=== PATIENT | male | born 1955 | race Caucasian/White ===

== ENCOUNTER 2016-09-01 04:21 | Emergency (ER) | payer OTHER ==
[~2016-09-01] VITALS: Ht 180.3 cm; Wt 104.3 kg
[~2016-09-01 04:21] MED LIST: FLUVOXAMINE MAL50 MG PO; GABAPENTIN300 M2 PO; LISINOPRIL10 M1 PO; LISINOPRIL20 M1 PO; LITHIUM CARBON300 M4 PO; MIRTAZAPINE15 M2 PO; MULTI-DAY VITA1 EACH PO; TRAZODONE HCL100 M1 PO
--- NOTE | 2016-09-01 04:23 | ED AMS/SEIZURE/WEAK/DIZZY ---
History of Present Illness General Chief Complaint: ETOH/Drug Related Complaint Stated Complaint: BIBA, +ETOH Source: patient, EMS Exam Limitations: intoxication Vital Signs & Intake/Output Vital Signs & Intake/Output Vital Signs Date Time Temp Pulse Resp B/P Pulse O2 O2 Flow FiO2 Ox Delivery Rate 09/02 1106 98.3 89 18 135/74 100 Room Air 09/02 0955 98.2 90 20 141/69 97 Room Air 09/02 0803 98.2 76 16 164/88 09/02 0803 98.2 76 16 164/88 95 Room Air 09/02 0644 97.8 75 20 155/85 97 Room Air 09/02 0529 98.1 84 20 140/98 09/02 0505 98.1 84 20 140/98 94 Room Air 09/02 0310 98.3 80 20 154/79 09/02 0258 98.3 80 20 154/79 94 Room Air 09/02 0016 96.3 83 18 136/78 94 Room Air 09/01 2300 96.3 83 18 136/78 09/01 2020 98.0 94 20 124/73 93 Room Air 09/01 1641 98.8 105 20 162/94 94 Room Air 09/01 1421 97.9 103 18 146/80 03 1421 97.9 103 20 146/80 95 ED Intake and Output 09/02 0000 09/01 1200 Intake Total 240 Output Total Balance 240 Intake, Oral 240 Patient 230 lb Weight Allergies Coded Allergies: No Known Allergies (01/27/16) Reconcile Medications Gabapentin 300 MG CAPSULE 300 MG PO QAM ANXIETY,PAIN,RESTLESSNESS (Reported) Gabapentin 300 MG CAPSULE 4 CAP PO QPM MENTAL HEALTH/PAIN (Reported) Lisinopril 20 MG TABLET 1 TAB PO DAILY BP (Reported) [place] Carbonate 300 MG CAPSULE 2 CAP PO BID MENTAL HEALTH (Reported) Mirtazapine 15 MG TABLET 1 TAB PO QPM SLEEP/MENTAL HEALTH (Reported) Triage Nurses Notes Reviewed? yes Onset: Gradual Duration: hour(s): Timing: recent history Injury Environment: home Severity: moderate Modifying Factors: Improves With: rest. Associated Symptoms: "I've been drinking." HPI: 61-year-old gentleman history of bipolar on lithium, presents after having been drinking for the past several days. He notes that he drank 2 gallons of vodka over the past 2 days. He states, "when I drink I don't feel safe. I wanted to come so you can watch me." He denies suicidality, homicidality, hallucinations. (WENDY PICKARD,MEHRDAD Piedra) Past History Travel History Traveled to [place] past 21 day No Medical History Any Pertinent Medical History? see below for history Neurological: NONE EENT: NONE Cardiovascular: He reports a "heart attack and a stent" approx 18 years ago. Respiratory: NONE Gastrointestinal: NONE Hepatic: NONE Renal: NONE Musculoskeletal: NONE Psychiatric: depression Endocrine: NONE Blood Disorders: NONE Cancer(s): non-hodgkin lymphoma TUBE PULLER/Reproductive: NONE Surgical History Surgical History: non-contributory Psychosocial History Who do you live with Patient/Self Family History Hx Contributory? No (WENDY PICKARD,MEHRDAD Piedra) Review of Systems Review of Systems Constitutional: Reports: no symptoms. EENTM: Reports: no symptoms. Respiratory: Reports: no symptoms. Cardiovascular: Reports: no symptoms. GI: Reports: no symptoms. Genitourinary: Reports: no symptoms. Musculoskeletal: Reports: no symptoms. Skin: Reports: no symptoms. Neurological/Psychological: Reports: no symptoms. Hematologic/Endocrine: Reports: no symptoms. Immunologic/Allergic: Reports: no symptoms. All Other Systems: Reviewed and Negative (WENDY PICKARD,MEHRDAD Piedra) Physical Exam Physical Exam General Appearance: well developed/nourished, awake, intoxicated Head: atraumatic, normal appearance Eyes: Bilateral: normal appearance, PERRL, EOMI. Ears, Nose, Throat: normal pharynx, normal ENT inspection Neck: normal inspection, supple, full range of motion Respiratory: normal breath sounds, chest non-tender, no respiratory distress, quiet respiration, lungs clear Cardiovascular: regular rate/rhythm Gastrointestinal: normal bowel sounds, soft, non-tender, no organomegaly Back: normal inspection Extremities: normal range of motion Neurologic/Psych: no motor/sensory deficits, awake, patient with slurred speech. Mild belligerence but easy to redirect with verbal cues. Core Measures ACS in differential dx? No CVA/TIA Diagnosis: No Severe Sepsis Present: No Septic Shock Present: No (MEHRDAD NGUYEN MD) Progress Differential Diagnosis: a call intoxication versus drug abuse versus lateral abnormality versus other Plan of Care: Orders Procedure Date/time Status CASE MANAGEMENT CONSULT 09/02 0652 Active CIWA 09/02 0000 Active ED CRISIS PSYCH CONSULT 09/01 1624 Active Initial ED EKG: none Hand-Off Endorsed To: CANDIS MILLER MD Endorsed Time: 07 Pending: other (clinically sober) (WENDY PICKARD,MEHRDAD Piedra) Hand-Off Endorsed To: MARIAN LEE MD Endorsed Time: 1916 Pending: consult (CRISIS) Comments: 09/01/16, 1000: Patient is awake however he is still slurring his words and sluggish pupils. Patient is requesting another Ativan. Patient still does not want detox. Patient is still intoxicated and cannot be discharged. Patient will be given 1 mg of Ativan. Patient's lithium level is also nondetectable. Patient states he has not been taking it. Patient girlfriend is very concerned about his increasing depression. She states that that is why he is drinking more. Patient will be seen by the clinician oncology. (CANDIS MILLER MD) Hand-Off Endorsed To: KEITH SIMPSON DO Endorsed Time: 07 Pending: consult Comments: Continues to have low CIWA but with confusion and disorientation. Last Ativan about 8PM. Requires crisis re-evaluation and / or case management for medical hospitalization. (MARIAN LEE MD) Departure Departure Disposition: HOME OR SELF CARE Condition: Stable Clinical Impression Primary Impression: Alcohol intoxication Referrals: PATIENT HAS NO PRIMARY CARE DR (PCP/Family) Departure Forms: Customer Survey General Discharge Information (MEHRDAD NGUYEN MD) Departure Additional Instructions: RETURN IF YOU WOULD LIKE TO STOP DRINKING (CANDIS MILLER MD) Departure Comments 09/02/16 10 AM Patient awake alert oriented 3 no ataxia. He declined suicidal ideation or homicidal ideation. He is not interested in inpatient detox. His CIWA scores have been <8. He says he does not drink every day. He was reevaluated and cleared by crisis; we are in agreement with the plan that he is safe for discharge. (KEITH SIMPSON DO)
[2016-09-01 04:57] LABS: HEMATOCRIT 46.5 % (42-52); MEAN CORPUSCULAR HGB 29.4 PG (27.0-31.0); MEAN CORPUSCULAR HGB CONC 33.3 G/DL (33.0-37.0); MEAN CORPUSCULAR VOLUME 88.1 FL (80.0-94.0); MEAN PLATELET VOLUME 7.8 FL (7.4-10.4); PLATELET COUNT 301 /CUMM (130-400); RBC DISTRIBUTION WIDTH 16.3 % (11.5-14.5); RED BLOOD CELL CT 5.28 /CUMM (4.70-6.10); WHITE BLOOD CELL COUNT 6.1 /CUMM (4.8-10.8)
[2016-09-01 05:08] LABS: LITHIUM < 0.2 mmol/L (0.6-1.2)
--- NOTE | 2016-09-01 19:57 | ED PSYCH CRISIS CONSULTATION ---
Crisis Consult Basic Assessment Date of Consult: 09/01/16 Responsible Person/Accompanied By: Chaz WANG Insurance Authorization: Insurance #1: Insurance name: MARÍA AUGUSTINE Phone number: Policy number: [id number] Group number: Authorization number: Chief Complaint: ETOH/Drug Related Complaint Patient's Quote: "I wanted help." Present Illness: Patient is a 61 year old male who called 911 last night while intoxicated. Patient is unable to clarify why he called 911 but states "I wanted to get better." Patient reports drinking 1 gallon of vodka daily for an unknown amount of time. Patient presents as anxious, fidgeting throughout our meeting, does not have cotnrol of bodily functions i.e. hiccuping & passing gas. When asked what day it is patient states "Monday" but it is . Patient recognizes that he is in [facility] in [place], [place]. Patient's significant other, Justa, is present with him in the ED and reports that patient has been drinking steadily for atleast a month and only is able to maintain sobriety for minimal periods of time. She expresses extreme concern for his well being since patient lives alone and has no other supports besides her. She reports he sleeps minimally and usually does not fall asleep until aroud 3 or 4AM. Patient denies any SI/HI at present, when asked if he is experiencing AH/VH he responded "yes" but was unable to clarify what and appears very confused. Patient unable to hold complete sentence with this pattern chart writer. Patient's Address: [address] [place] [address] Other Phone Number: Who Do You Live With? Patient/Self Family/Informants Interviewed: See present illness Allergies - Coded Allergies: No Known Allergies (01/27/16) Current Medications - Scheduled Medications Gabapentin 300 MG CAPSULE 300 MG PO QAM ANXIETY,PAIN,RESTLESSNESS (Reported) Entered as Reported by DONY FOLEY on 10/29/15 1757 Gabapentin 300 MG CAPSULE 4 CAP PO QPM MENTAL HEALTH/PAIN (Reported) Entered as Reported by MYRA KEENE on 12/08/15 1701 Lisinopril 20 MG TABLET 1 TAB PO DAILY BP #14 (Reported) Entered as Reported by MYRA KEENE on 11/24/15 1610 [place] Carbonate 300 MG CAPSULE 2 CAP PO BID MENTAL HEALTH #56 (Reported) Entered as Reported by MYRA KEENE on 11/24/15 1609 Last Taken: 08/29/16 Mirtazapine 15 MG TABLET 1 TAB PO QPM SLEEP/MENTAL HEALTH #14 (Reported) Entered as Reported by MYRA KEENE on 11/24/15 1610 Laboratory Results: Laboratory Tests 09/01/16 0627: Urine Opiates Screen < 100.00, Methadone Screen < 40, Barbiturate Screen < 60, Ur Phencyclidine Scrn < 6.00, Amphetamines Screen < 100, U Benzodiazepines Scrn < 85, Urine Cocaine Screen < 50, Urine Cannabis Screen < 5.00 09/01/16 0442: Anion Gap 19 H, Estimated GFR > 60, BUN/Creatinine Ratio 11.4, Glucose 78, Calcium 8.9, Total Bilirubin 0.6, AST 207 H, ALT 137 H, Alkaline Phosphatase 77, Total Protein 7.0, Albumin 4.2, Globulin 2.8, Albumin/Globulin Ratio 1.5, CBC w Diff MAN DIFF ORDERED, RBC 5.28, MCV 88.1, MCH 29.4, RDW 16.3 H, MPV 7.8, Segmented Neutrophils 74, Lymphocytes 12 L, Monocytes 10 H, Eosinophils 4, Platelet Estimate ADEQUATE, Polychromasia 1+, Ovalocytes FEW, PUBS MCHC 33.3, Fld Total RBCs Counted 100, [place] < 0.2 L, Serum Alcohol 395.0 (ANNE-MARIE JACQUARD TWINE POLISHER OPERATOR,EMMY) Past History Past Medical History Neurological: NONE EENT: NONE Cardiovascular: He reports a "heart attack and a stent" approx 18 years ago. Respiratory: NONE Gastrointestinal: NONE Hepatic: NONE Renal: NONE Musculoskeletal: NONE Psychiatric: depression Endocrine: NONE Blood Disorders: NONE Cancer(s): non-hodgkin lymphoma BUDDER/Reproductive: NONE Past Surgical History Surgical History: non-contributory Psychosocial History Strengths/Capabilities: Supportive significant other, family. Able to articulate wants/needs. Asking for help at present. Physical Limitations (Interventions): None identifed. Psychiatric Treatment History Psych Treatment Psychiatric Treatment Yes Inpatient Treatment Yes Outpatient Treatment Yes Location of Treatment [address] 2015 Reason for Treatment Depression, alcohol Dates of Treatment 2016 Response to Treatment Poor Diagnosis by History: Bipolar D/O, Alcohol Use D/O, severe Substance Use/Abuse History Drug Use/Abuse Substances Used/Abused Yes Substance Used/Abused Alcohol First Use unknown Last Used last evening How much used/taken 1 gallon of vodka How often daily For how long atleast a month Route of use oral Substance Abuse Treatment Substance Abuse Treatment Past Substance Abuse TX Yes Inpatient Treatment No Outpatient Treatment Yes Location of Treatment [facility] IOP Reason for Treatment alcohol dependence Dates of Treatment 2016 Response to Treatment poor (EMMY XIE LCSW) Current Mental Status Mental Status Orientation: Confused Affect: Anxious Speech: Incoherent, Mumbled, Slurred Neuro-vegetative: Anhedonia, Appetite Decreased, Concentration Poor, Energy Decreased, Helpless, Loss of Interest, Sleep Disturbance Appearance Appearance- Dress/Hygiene: In hospital issued scrubs, poor eye contact, barely able to hold conversation. Hiccuping and passing gas throughout evaluation. Behaviors Thought Process: Thought Blocking Thought Content: Auditory Hallucinations, Visual Hallucinations, Could not elaborate Memory: Impaired Insight: Poor SI/HI Risk Assessment Past Suicidal Ideation/Attempts No Current Suicidal Ideation/Att No Past Homicidal Ideation/Att: No Current Homicidal Ideation/Attempts No Degree of Intent: None Gravely Disabled: Poor Impulse Control Risk Factors: high anxiety/distress, SA/MH hospitalized, substance abuse, poor impulse control, lives alone, male, limited support Lethality Ratin PTSD Checklist PTSD Done? pt unable to participate ED Management Sitter: Yes Restraints: No (EMMY XIE LCSW) DSM5/PS Stressors/Medical Prob Diagnosis' (DSM 5, Stressors, Medical): Alcohol use d/o, severe F10.20 Current GAF: 40 (EMMY XIE LCSW) Departure Disposition Psych Medical Clearance Date: 09/01/16 Medically Cleared at: 1950 Time Started: 1949 Time Ended: 2029 Psychiatrist Consulted: Demian Pacheco MD Date Disposition Established: 09/01/16 Time Disposition Established: 2051 Plan for Disposition - Modality: Hold over/re-eval Facility: [facility] Rationale for Disposition: Patient to be held in ED overnight due to continued possible medical concerns. Patient continues to appear somewhat disoriented and in withdrawal. Referrals PATIENT HAS NO PRIMARY CARE DR (PCP/Family) (EMMY XIE LCSW) Addendum Addendum Re evaluated pt this morning, pt denies si/hi. He reports he wants to go home, and will call his "girl" for a ride. Pt reports when asked if he wants a list of detox resources, he states "Im just not there yet". Pt encouraged to seek treatment for etoh use. Consulted with Dr. Pacheco, pt not meeting criteria for inpatient hospitalization, outpatient and detox resources offered. (HENRRY ZARATE,LYNDA)
[2016-09-02 11:06] VITALS: BP 135/74
== END 2016-09-02 11:05 ==
LOC: ERH 04:21
PROVIDERS: Pediatrics
DX: F10.129 Alcohol abuse with intoxication, unspecified (principal)
CPT/HCPCS: 80307; 96374; G0463; G0480